=== PATIENT | male | born 1960 | race Caucasian/White ===

== ENCOUNTER → 2016-11-11 10:15 | Outpatient (CLI) | payer MEDICAID ==
[~2016-11-11 10:15] MED LIST: BUMEX2 MG PO; CARAFATE1 G PO; CLEOCIN HCL300 MG PO; HUMIRA20 MG/0.4 SQ; HYDROCODONE-APA1 TAB PO; K-DUR20 MEQ PO; PROTONIX I40 MG/VIAL PO; ROBAXIN-750750 MG PO; VITAMIN D5000 UNIT PO; XANAX1 MG PO
== END | disposition home or self-care (01) ==
LOC: D.MRI 10:15
DX: M75.41 Impingement syndrome of right shoulder (principal)

== ENCOUNTER → 2020-02-15 11:07 | Outpatient (CLI) | payer OTHER | END | disposition home or self-care (01) | LOC: D.RAD 11:07 | PROVIDERS: ATTEND Pain Medicine Interventional Pain Medicine | DX: M54.5 Low back pain (principal) ==